=== PATIENT | female | born 1935 | race Caucasian/White ===

== ENCOUNTER 2018-03-20 04:51 | Emergency (ER) | payer MEDICARE, BC ==
[2018-03-20] MEDS ORDERED: FLUCONAZOLE 100 MG TABLET PO ONE (05:32)
--- NOTE | 2018-03-20 05:37 | Emergency Department Record ---
History of Present Illness - General Chief Complaint: Abrasion Stated Complaint: BLEEDING/ON THINNERS Time Seen by Provider: 03/20/18 05:31 Source: Patient, RN notes reviewed Mode of Arrival: Ambulatory - History of Present Illness Initial Commments: patient is bleeding from early decubitus on the buttock right side. patient also has yeast infection. Onset/Timin -: Days(s) Location: Genitals Place: Home Context: Accidental Associated Symptoms: Pain Treatments Prior to Arrival: Bandage - [place] Coma Scale Eye Response: (4) Open spontaneously Motor Response: (6) Obeys commands Verbal Response: (5) Oriented Aparna Total: 15 - Related Data Hx Tetanus Toxoid Vaccination: Yes Patient Tetanus UTD (within 5 yrs): No Previous Rx's Medication Instructions Recorded Fluconazole [Diflucan] 150 mg PO ONCE #1 tab 03/20/18 Mupirocin [Bactroban] 1 apply TP BID #30 gm 03/20/18 Allergies Allergy/AdvReac Type Severity Reaction Status Date / Time No Known Drug Intolerances Allergy Unknown Unverified 11/28/17 15:46 Travel Screening - Travel/Exposure Within Last 30 Days Have you traveled within the last 30 days?: No - Travel Symptoms Symptom Screening: None Review of Systems Reviewed: No additional complaints except as noted below Constitutional: Reports: As per HPI. Denies: Chills, Fever, Malaise, Night sweats, Weakness, Weight change Eyes: Reports: As per HPI. Denies: Eye discharge, Eye pain, Photophobia, Vision change ENT: Reports: As per HPI. Denies: Congestion, Dental pain, Ear pain, Epistaxis , Hearing loss, Throat pain Respiratory: Reports: As per HPI. Denies: Cough, Dyspnea, Hemoptysis, Stridor, Wheezes Cardiovascular: Reports: As per HPI. Denies: Arrhythmia, Chest pain, Dyspnea on exertion, Edema, Murmurs, Orthopnea, Palpitations, Paroxysmal nocturnal dyspnea, Rheumatic Fever, Syncope Endocrine: Reports: As per HPI. Denies: Fatigue, Heat or cold intolerance, Polydipsia, Polyuria Gastrointestinal: Reports: As per HPI. Denies: Abdominal pain, Constipation, Diarrhea, Hematemesis, Hematochezia, Melena, Nausea, Vomiting Genitourinary: Reports: As per HPI. Denies: Abnormal menses, Discharge, Dyspareunia, Dysuria, Frequency, Hematuria, Incontinence, Retention, Urgency Musculoskeletal: Reports: As per HPI. Denies: Arthralgia, Back pain, Gout, Joint swelling, Myalgia, Neck pain Skin: Reports: As per HPI. Denies: Bruising, Change in color, Change in hair/ nails, Lesions, Pruritus, Rash Neurological: Reports: As per HPI. Denies: Abnormal gait, Confusion, Headache, Numbness, Paresthesias, Seizure, Tingling, Tremors, Vertigo, Weakness Psychiatric: Reports: As per HPI. Denies: Anxiety, Auditory hallucinations, Depression, Homicidal thoughts, Suicidal thoughts, Visual hallucinations Hematological/Lymphatic: Reports: As per HPI. Denies: Anemia, Blood Clots, Easy bleeding, Easy bruising, Swollen glands Past Medical History - SOCIAL HISTORY Smoking Status: Never smoker Alcohol Use: None Drug Use: None - RESPIRATORY Hx Respiratory Disorders: Yes Hx Pulmonary Embolism: Yes - CARDIOVASCULAR Hx Deep Vein Thrombosis: Yes Hx Irregular Heartbeat: Yes (afib) - NEURO Hx Neuro Disorders: No - GI Hx GI Disorders: No - Hx Genitourinary Disorders: Yes Hx UTI: Yes - ENDOCRINE Hx Endocrine Disorders: Yes Hx Diabetes: Yes (IDDM2) - MUSCULOSKELETAL Hx Musculoskeletal Disorders: No - PSYCH Hx Psych Problems: No - HEMATOLOGY/ONCOLOGY Hx Hematology/Oncology Disorders: Yes Hx Chemotherapy: Yes Family Medical History Any Significant Family History?: Yes Hx Cancer: Mother Physical Exam - General General Appearance: Alert, Oriented x3, Cooperative, No acute distress - Head Head exam: Normal inspection - Eye Eye exam: Normal appearance, PERRL Pupils: Normal accommodation - ENT ENT exam: Normal exam, Mucous membranes moist, Normal external ear exam, Normal orophraynx, TM's normal bilaterally Ear exam: Normal external inspection. negative: External canal tenderness Nasal Exam: Normal inspection. negative: Discharge, Sinus tenderness Mouth exam: Normal external inspection, Tongue normal Teeth exam: Normal inspection. negative: Dental caries Throat exam: Normal inspection. negative: Tonsillar erythema, Tonsillar exudate - Neck Neck exam: Normal inspection, Full ROM. negative: Tenderness - Respiratory Respiratory exam: Normal lung sounds bilaterally. negative: Respiratory distress - Cardiovascular Cardiovascular Exam: Regular rate, Normal rhythm, Normal heart sounds - GI/Abdominal GI/Abdominal exam: Soft, Normal bowel sounds. negative: Tenderness - Rectal Rectal exam: Deferred - exam: Deferred - Extremities Extremities exam: Normal inspection, Full ROM, Normal capillary refill. negative: Tenderness - Back Back exam: Reports: Normal inspection, Full ROM. Denies: Muscle spasm, Rash noted, Tenderness - Neurological Neurological exam: Alert, Normal gait, Oriented X3, Reflexes normal - Psychiatric Psychiatric exam: Normal affect, Normal mood - Skin Skin exam: Other (early decubitus right buttock , with yeast in the groin skin folds) Disposition Clinical Impression: Monial infection of vagina Decubitus skin ulcer Qualifiers: Pressure injury location: buttock Pressure injury stage: stage 1 Laterality: right Qualified Code(s): L89.311 - Pressure ulcer of right buttock, stage 1 Disposition: Home, Self-Care Condition: (1) Good Instructions: How to Prevent Pressure Ulcers (ED) Additional Instructions: wash area once a day use bactoban ointment twice a day take one diflucan pill tomorrow follow up with family Dr in one week Prescriptions: Fluconazole [Diflucan] 150 mg PO ONCE #1 tab Mupirocin [Bactroban] 1 apply TP BID #30 gm Forms: Patient Portal Access Time of Disposition: 05:39 Quality - Quality Measures Quality Measures: N/A - Blood Pressure Screening Does Patient Have Any of the Following: No, Active Dx of HTN Blood Pressure Classification: Hypertensive Reading Systolic Measurement: 191 Diastolic Measurement: 101 Screening for High Blood Pressure: Patient Exclusion, Hx of HTN [G9744]
== END 2018-03-20 06:04 | disposition home or self-care (01) ==
LOC: ER 04:51
DX: L89.311 Pressure ulcer of right buttock, stage 1 (principal); B37.3 Candidiasis of vulva and vagina; Z86.711 Personal history of pulmonary embolism; Z79.01 Long term (current) use of anticoagulants; I48.91 Unspecified atrial fibrillation; E11.9 Type 2 diabetes mellitus without complications
CPT/HCPCS: 99283

== ENCOUNTER 2019-02-16 07:43 | Emergency (ER) | payer MEDICARE, BC ==
--- NOTE | 2019-02-16 07:53 | Emergency Department Record ---
History of Present Illness - General Chief Complaint: Altered Mental Status Stated Complaint: CONFUSION Time Seen by Provider: 02/16/19 07:49 Source: Patient, RN notes reviewed Mode of Arrival: Ambulatory - History of Present Illness Initial Comments: right lower jaw pain and had 8 teeth removed 6 days ago. Her lower right molar painful and she was incontient of urine and some confusion and she also states chronic atrial fib and her heart feels irregular.heart rate is controlled and came to the ED because of confusion and painful tooth right lower extraction site. molar spot first. No chest pain no dyspnea from patient and daughter.No abdominal pain and data technician is Dr Darrin Maddox. Primary DR Estelle andrews [place]. Patient said she got up to go to the bathroom and couldn't figure out where she was located and she thought her sugar was low and it checked 107. yesterday AM her glucose was 85. Currently her mental status is back to baseline and this episode only lasted 10 minutes - [place] Coma Scale Eye Response: (4) Open spontaneously Motor Response: (6) Obeys commands Verbal Response: (5) Oriented Aparna Total: 15 - Related Data Home Medications Medication Instructions Recorded Confirmed Last Taken Calcium Carbonate/Vitamin D3 1 tab PO BID 02/16/19 02/16/19 Unknown [Calcium 500 mg Chewable Tablet] Cholecalciferol (Vitamin D3) 1 tab PO DAILY 02/16/19 02/16/19 Unknown [Vitamin D3] Fondaparinux Sodium 0.6 ml SQ DAILY 02/16/19 02/16/19 Unknown Fondaparinux Sodium 0.6 ml SQ DAILY 02/16/19 02/16/19 Unknown Furosemide [Lasix] 20 mg PO DAILY 02/16/19 02/16/19 Unknown Penicillin V Potassium 1 tab PO QID 02/16/19 02/16/19 Unknown Allergies Allergy/AdvReac Type Severity Reaction Status Date / Time No Known Drug Intolerances Allergy Unknown BODY ACHES Verified 02/16/19 07:57 Review of Systems Reviewed: No additional complaints except as noted below Constitutional: Reports: As per HPI. Denies: Chills, Fever, Malaise, Night sweats, Weakness, Weight change Eyes: Reports: As per HPI. Denies: Eye discharge, Eye pain, Photophobia, Vision change ENT: Reports: As per HPI. Denies: Congestion, Dental pain, Ear pain, Epistaxis, Hearing loss, Throat pain Respiratory: Reports: As per HPI. Denies: Cough, Dyspnea, Hemoptysis, Stridor, Wheezes Cardiovascular: Reports: As per HPI. Denies: Arrhythmia, Chest pain, Dyspnea on exertion, Edema, Murmurs, Orthopnea, Palpitations, Paroxysmal nocturnal dyspnea, Rheumatic Fever, Syncope Endocrine: Reports: As per HPI. Denies: Fatigue, Heat or cold intolerance, Polydipsia, Polyuria Gastrointestinal: Reports: As per HPI. Denies: Abdominal pain, Constipation, Diarrhea, Hematemesis, Hematochezia, Melena, Nausea, Vomiting Genitourinary: Reports: As per HPI. Denies: Abnormal menses, Discharge, Dyspareunia, Dysuria, Frequency, Hematuria, Incontinence, Retention, Urgency Musculoskeletal: Reports: As per HPI. Denies: Arthralgia, Back pain, Gout, Joint swelling, Myalgia, Neck pain Skin: Reports: As per HPI. Denies: Bruising, Change in color, Change in hair/nails, Lesions, Pruritus, Rash Neurological: Reports: As per HPI. Denies: Abnormal gait, Confusion, Headache, Numbness, Paresthesias, Seizure, Tingling, Tremors, Vertigo, Weakness Psychiatric: Reports: As per HPI. Denies: Anxiety, Auditory hallucinations, Depression, Homicidal thoughts, Suicidal thoughts, Visual hallucinations Hematological/Lymphatic: Reports: As per HPI. Denies: Anemia, Blood Clots, Easy bleeding, Easy bruising, Swollen glands Past Medical History - SOCIAL HISTORY Smoking Status: Never smoker Drug Use: None - RESPIRATORY Hx Respiratory Disorders: Yes Hx Pulmonary Embolism: Yes - CARDIOVASCULAR Hx Deep Vein Thrombosis: Yes Hx Irregular Heartbeat: Yes (afib) - NEURO Hx Neuro Disorders: No - GI Hx GI Disorders: No - Hx Genitourinary Disorders: Yes Hx UTI: Yes - ENDOCRINE Hx Endocrine Disorders: Yes Hx Diabetes: Yes (IDDM2) - MUSCULOSKELETAL Hx Musculoskeletal Disorders: No - PSYCH Hx Psych Problems: No - HEMATOLOGY/ONCOLOGY Hx Hematology/Oncology Disorders: Yes Hx Chemotherapy: Yes Family Medical History Hx Cancer: Mother Physical Exam - General General Appearance: Alert, Oriented x3, Cooperative, No acute distress - Head Head exam: Normal inspection - Eye Eye exam: Normal appearance, PERRL Pupils: Normal accommodation - ENT ENT exam: Normal exam, Mucous membranes moist, Normal external ear exam, Normal orophraynx, TM's normal bilaterally Ear exam: Normal external inspection. negative: External canal tenderness Nasal Exam: Normal inspection. negative: Discharge, Sinus tenderness Mouth exam: Normal external inspection, Tongue normal Teeth exam: Dental caries, Other (eight extraction sites) Throat exam: Normal inspection. negative: Tonsillar erythema, Tonsillar exudate - Neck Neck exam: Normal inspection, Full ROM. negative: Tenderness - Respiratory Respiratory exam: Normal lung sounds bilaterally. negative: Respiratory distress - Cardiovascular Cardiovascular Exam: Regular rate, Normal rhythm, Normal heart sounds - GI/Abdominal GI/Abdominal exam: Soft, Normal bowel sounds. negative: Tenderness - Rectal Rectal exam: Deferred - exam: Deferred - Extremities Extremities exam: Normal inspection, Full ROM, Normal capillary refill. negative: Tenderness - Back Back exam: Reports: Normal inspection, Full ROM. Denies: Muscle spasm, Rash noted, Tenderness - Neurological Neurological exam: Alert, Normal gait, Oriented X3, Reflexes normal - Psychiatric Psychiatric exam: Normal affect, Normal mood - Skin Skin exam: Dry, Intact, Normal color, Warm Course - Reevaluation(s) Reevaluation #1: 02/16/19 08:34 currently patient back to her baseline and she has been on a liquid diet since the extraction and her painful extraction site looks reasonable and slightly swollen no drainage. Reevaluation #2: discussed case with Dr Thompson and he was able to look up an EKG 2017 and T wave inversion were present at that time 02/16/19 11:41 Reevaluation #3: patient is back to her baseline on mental status , She ate a lunch tray 02/16/19 11:45 Medical Decision Making - Data Complexity MDM Data: Labs Ordered and/or Reviewed (trop T neg, dig 0.7), X-Ray Ordered and/or Reviewed (CT head chronic changes, chest chronic interstiual changes), EKG Ordered and/or Reviewed (atrial fib and t wave inversion 1,2,avl,avf,V1,V2,V3.V4,V5,V6) - Lab Data Result diagrams: 02/16/19 08:20 02/16/19 08:20 Disposition Clinical Impression: Jaw pain, Status post tooth extraction, Hypoglycemia Disposition: Home, Self-Care Condition: (1) Good Instructions: Hypoglycemia in a Person with Diabetes (ED) Additional Instructions: fluids and continue checking glucose three times a day decrease levimir to 30 units twice a day follow up with family in one week follow up with Dr Darrin Maddox in 2 weeks follow up with dentist next week continue penicillin Forms: Patient Portal Access Time of Disposition: 11:40 Quality - Quality Measures Quality Measures: N/A - Blood Pressure Screening Does Patient Have Any of the Following: No, Active Dx of HTN Blood Pressure Classification: Hypertensive Reading Systolic Measurement: 193 Diastolic Measurement: 106 Screening for High Blood Pressure: Patient Exclusion, Hx of HTN [G9744]
[2019-02-16] MEDS ORDERED: ASPIRIN 81 MG CHEWABLE TABLET PO ONE (08:02)
[2019-02-16 08:36] LABS: ABSOLUTE NEUTROPHIL COUNT 6.99; BASO % 0.2 % (0-6); EOS % 1.9 % (0-6); GRAN % 70.8 % (47-80); HEMATOCRIT 41.6 % (35.0-47.0); HEMOGLOBIN 13.4 gm/dl (11.6-16.0); LYMPH % 22.1 % (16-45); MEAN CELL VOLUME 93.7 fl (81-97); MEAN CORPUSCULAR HEMOGLOBIN 30.2 pg (27-33); MEAN CORPUSCULAR HGB CONC 32.2 g/dl (32-36); MEAN PLATELET VOLUME 11.4 fl (7.4-10.4); PLATELET COUNT 227 K/uL (130-400); RED BLOOD COUNT 4.44 M/uL (3.80-5.40); RED CELL DISTRIBUTION WIDTH 13.8 % (11.5-14.5); WHITE BLOOD COUNT W/O DIFF 9.9 K/uL (4.2-12.2)
[2019-02-16 08:40] LABS: BLOOD UREA NITROGEN 17 mg/dL (8-23); EST GLOMERULAR FILTRATION RATE 56 mL/min
[2019-02-16 08:42] LABS: GLUCOSE,RANDOM 85 mg/dL (74-109)
[2019-02-16 08:50] LABS: URINE APPEARANCE CLEAR; URINE BILIRUBIN NEGATIVE (NEGATIVE); URINE BLOOD NEGATIVE (NEGATIVE); URINE COLOR YELLOW; URINE GLUCOSE (UA) NEGATIVE (NEGATIVE); URINE KETONE NEGATIVE (NEGATIVE); URINE LEUKOCYTE ESTERASE NEGATIVE (NEGATIVE); URINE NITRITE NEGATIVE (NEGATIVE); URINE PROTEIN NEGATIVE (NEGATIVE)
[2019-02-16] MEDS ORDERED: ONDANSETRON HCL IV 4 MG/2 ML VIAL IVP ONE (09:09)
--- NOTE | 2019-02-16 23:48 | RADIOLOGY REPORT ---
EXAM: CHEST 2 VIEWS HISTORY: DECREASED LEVEL OF CONSCIOUSNESS. TECHNIQUE: Chest x-ray, two views. COMPARISON: 08/08/2010. FINDINGS: There is a moderate-sized hiatal hernia. The heart is enlarged. Mediastinum otherwise unremarkable. There are some chronic-appearing interstitial lung changes. No focal area of lung consolidation. IMPRESSION: 1. CARDIOMEGALY. 2. CHRONIC INTERSTITIAL LUNG CHANGES. 3. MODERATE-SIZED HIATAL HERNIA. JOB NUMBER: [id number] MTDD
--- NOTE | 2019-02-17 00:11 | CT SCAN REPORT ---
EXAM: CT SCAN HEAD WO CONTRAST HISTORY: DECREASED LEVEL OF CONSCIOUSNESS. TECHNIQUE: Noncontrast head CT. COMPARISON: None. FINDINGS: There is mild prominence of the ventricles and subarachnoid spaces compatible with atrophy. There are areas of white matter hypodensity, likely the result of chronic small vessel ischemic change. There is no mass or mass effect. No intra or extraaxial hemorrhage. No CT evidence for large acute territorial infarct. There is mild mucosal thickening in the left maxillary sinus. There are polyps or retention cysts in the maxillary sinuses bilaterally. Frontal sinus, sphenoid sinus, and ethmoid air cells are clear. IMPRESSION: 1. ATROPHY AND CHRONIC SMALL VESSEL ISCHEMIC CHANGE. 2. NO MASS, HEMORRHAGE, OR ACUTE INTRACRANIAL PROCESS. 3. MILD MUCOSAL THICKENING IN THE LEFT MAXILLARY SINUS AND THERE ARE POLYPS OR RETENTION CYSTS IN THE INFERIOR MAXILLARY SINUSES BILATERALLY. JOB NUMBER: [id number] MTDD
== END 2019-02-16 12:03 | disposition home or self-care (01) ==
LOC: ER 07:43
DX: E11.649 Type 2 diabetes mellitus with hypoglycemia without coma (principal); R41.82 Altered mental status, unspecified; K08.409 Partial loss of teeth, unspecified cause, unspecified class; R32 Unspecified urinary incontinence; R53.1 Weakness; R68.84 Jaw pain; I48.2 Chronic atrial fibrillation; R11.0 Nausea; I10 Essential (primary) hypertension; Z79.4 Long term (current) use of insulin
CPT/HCPCS: 99284 ×2; 96374; 85025; 85730; 80048; 81003; 84484; 80162; 71046; 70450; 93005; 93010; J2405

== ENCOUNTER 2019-03-06 02:59 | Emergency (ER) | payer MEDICARE, BC ==
[2019-03-06] MEDS ORDERED: TRANEXAMIC ACID 1,000 MG/10 ML ML TOP ONE ×2 (03:07→04:55)
--- NOTE | 2019-03-06 03:13 | Emergency Department Record ---
History of Present Illness - General Chief complaint: ENT Stated complaint: BLEEDING FROM MOUTH Time Seen by Provider: 03/06/19 03:03 Source: Patient Mode of Arrival: Ambulatory Limitations: No limitations - History of Present Illness Initial comments: 84 yo female presents to ED for evaluation of bleeding from post-extraction of site of numerous teeth approxiamtely 10 days ago. Patient reports that she stopped her Arixiban prior to extraction, restarted afterwords. Patient reports that she had been doing well when she awoke 2 hours ago with bleeding from the gingival tissue. Patient denies injury or trauma on examination. 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 MD complaint: Other Onset/Timin -: Hour(s) 1 - Bleeding/mild clots present Severity: Moderate Consistency: Constant Improves with: None Worsens with: None Context-Epistaxis: Recent surgery/procedure, Other (Anticoagulation use) Context- Dental: Poor dental care - Related Data Home Medications Medication Instructions Recorded Confirmed Last Taken Glipizide 5 mg PO BID 03/06/19 03/06/19 03/05/19 Lisinopril 10 mg PO DAILY 03/06/19 03/06/19 03/05/19 Allergies Allergy/AdvReac Type Severity Reaction Status Date / Time No Known Drug Allergies Allergy Verified 03/06/19 03:08 Travel Screening - Travel/Exposure Within Last 30 Days Have you traveled within the last 30 days?: No - Travel/Exposure Within Last Year Have you traveled outside the [place] in the last year?: No - Additonal Travel Details Have you been exposed to anyone with a communicable illness?: No - Travel Symptoms Symptom Screening: None Review of Systems Constitutional: Denies: Chills, Fever, Malaise, Night sweats Eyes: Denies: Eye discharge, Eye pain ENT: Denies: Congestion, Ear pain, Epistaxis Respiratory: Denies: Cough, Dyspnea Cardiovascular: Denies: Chest pain, Dyspnea on exertion Endocrine: Denies: Fatigue, Heat or cold intolerance Gastrointestinal: Denies: Abdominal pain, Nausea, Vomiting Genitourinary: Denies: Incontinence, Retention Musculoskeletal: Denies: Arthralgia, Back pain Skin: Denies: Bruising, Change in color Neurological: Denies: Abnormal gait, Confusion, Headache, Seizure Psychiatric: Denies: Anxiety Hematological/Lymphatic: Reports: Easy bleeding, Easy bruising. Denies: Anemia, Blood Clots Past Medical History - SOCIAL HISTORY Smoking Status: Never smoker Alcohol Use: None Drug Use: None - RESPIRATORY Hx Respiratory Disorders: Yes Hx Pulmonary Embolism: Yes - CARDIOVASCULAR Hx Deep Vein Thrombosis: Yes Hx Irregular Heartbeat: Yes (afib) - NEURO Hx Neuro Disorders: No - GI Hx GI Disorders: No - Hx Genitourinary Disorders: Yes Hx Kidney Stones: Yes Hx UTI: Yes - ENDOCRINE Hx Endocrine Disorders: Yes Hx Diabetes: Yes (IDDM2) - MUSCULOSKELETAL Hx Musculoskeletal Disorders: No - PSYCH Hx Psych Problems: No - HEMATOLOGY/ONCOLOGY Hx Hematology/Oncology Disorders: Yes Hx Chemotherapy: Yes Family Medical History Any Significant Family History?: Yes Hx Cancer: Mother Physical Exam - General General Appearance: Alert, Oriented x3, Cooperative, Mild distress Limitations: No limitations - Head Head exam: Atraumatic, Normocephalic, Normal inspection Head exam detail: negative: Abrasion, Contusion, Palacios's sign, General tenderness, Hematoma, Laceration - Eye Eye exam: Normal appearance. negative: Conjunctival injection, Periorbital swelling, Periorbital tenderness, Scleral icterus - ENT Ear exam: negative: Auricular hematoma, Auricular trauma Nasal Exam: negative: Active bleeding, Discharge, Dried blood, Foreign body Mouth exam: negative: Drooling, Laceration, Muffled voice, Tongue elevation Teeth exam: Other (Gingival bleeding from the lower mandible on examination). negative: Dental caries, Dental tenderness #, Fractured tooth #, Gingival enlargement Throat exam: negative: Tonsillar erythema, Tonsillomegaly, R peritonsillar mass, L peritonsillar mass - Neck Neck exam: Normal inspection. negative: Meningismus, Tenderness - Respiratory Respiratory exam: Normal lung sounds bilaterally. negative: Rales, Respiratory distress, Rhonchi, Stridor - Cardiovascular Cardiovascular Exam: Regular rate, Normal rhythm, Normal heart sounds - GI/Abdominal GI/Abdominal exam: Soft. negative: Rebound, Rigid, Tenderness - Rectal Rectal exam: Deferred - exam: Deferred - Extremities Extremities exam: Normal inspection. negative: Pedal edema, Tenderness - Back Back exam: Denies: CVA tenderness (R), CVA tenderness (L) - Neurological Neurological exam: Alert, Normal gait, Oriented X3 - Psychiatric Psychiatric exam: Normal affect, Normal mood - Skin Skin exam: Normal color. negative: Abrasion Type of lesion: negative: abrasion Course Vital Signs 03/06/19 03:02 Pulse Rate [ 71 Pulse Ox Probe] Respiratory 20 Rate Blood Pressure 127/111 [Left Arm] Pulse Ox 97 - Reevaluation(s) Reevaluation #1: 03/06/19 03:42 Attempted TXA-soaked gauze with compression to the anterior lower mandible with some improvement in the patient's bleeding symptoms. Will attempt 2nd round of TXA soaked gauze and reassess. Reevaluation #2: 03/06/19 04:23 2nd TXA application has not sufficiently stopped the patient's bleeding. Staff member is attempting to locate a mouth guard to apply gelfoam within the reassess and slow the patient's bleeding down. TLE applied guaze applied to the oral cavity at this time. Reevaluation #3: 03/06/19 05:01 Mouth guard applied with TXA-lined gauze, patient reports more snug fit with the intent to reduce bleeding. Will reassess in 20 minutes. Reevaluation #4: 03/06/19 05:17 2nd (more shallow) mouth guard applied with Gelfoam/TXA combination. Will continue to monitor closely. Reevaluation #5: 03/06/19 05:51 Patient was reassessed, reports that her bleeding has not significantly improved. Patient is taking Penicillin at this time following her surgery. Patient appears stable for discharge with instructions to follow-up with her Oral Surgeon later today. Disposition Disposition: Discharge Clinical Impression: Anticoagulated Post-op bleeding Qualifiers: Surgical complication system/body Area: subcutaneous tissue Procedure type: non-dermatologic Qualified Code(s): L76.22 - Postprocedural hemorrhage of skin and subcutaneous tissue following other procedure Disposition: Home, Self-Care Condition: (2) Stable Instructions: Postoperative Bleeding (ED) Additional Instructions: Return to ED if your symptoms worsen or if you have any concerns. Follow-up with your Oral Surgeon later today for further evaluation. Forms: Patient Portal Access Time of Disposition: 03:14 Quality - Quality Measures Quality Measures: N/A - Blood Pressure Screening Does Patient Have Any of the Following: No Blood Pressure Classification: Hypertensive Reading Systolic Measurement: 163 Diastolic Measurement: 94 Screening for High Blood Pressure: < First Hypertensive BP, F/U Documented > [G8950] First Hypertensive Follow-up Interventions: Referral to alternative/primary care provider.
[2019-03-06] MEDS ORDERED: ONDANSETRON 4 MG ODT TABLET SL ONE (03:38)
[2019-03-06] MEDS ORDERED: TOPICAL LIDOCAINE W/ EPI 5 ML TOP ONE (04:23)
[2019-03-06] MEDS ORDERED: GELATIN SPONGE,ABSORBABLE 12-7MM TP ONE (06:51)
== END 2019-03-06 06:01 | disposition home or self-care (01) ==
LOC: ER 02:59
DX: K91.840 Postprocedural hemorrhage of a digestive system organ or structure following a digestive system procedure (principal); Y83.8 Other surgical procedures as the cause of abnormal reaction of the patient, or of later complication, without mention of misadventure at the time of the procedure; Y92.009 Unspecified place in unspecified non-institutional (private) residence as the place of occurrence of the external cause; Z79.01 Long term (current) use of anticoagulants; I48.91 Unspecified atrial fibrillation; Z86.718 Personal history of other venous thrombosis and embolism; E11.9 Type 2 diabetes mellitus without complications; Z79.4 Long term (current) use of insulin
CPT/HCPCS: 99284 ×2; J3490